=== PATIENT | female | born 2000 | race Two or more races ===

== ENCOUNTER 2020-03-16 08:02 | Emergency (ER) | payer OTHER ==
[~2020-03-16] VITALS: Ht 160 cm; Wt 66.2 kg
[2020-03-16] MEDS ORDERED: PRENATABS RX T1 EACH PO (08:07)
== END 2020-03-16 12:30 | disposition home or self-care (01) ==
LOC: ER 08:02
DX: O20.8 Other hemorrhage in early pregnancy (principal); Z3A.01 Less than 8 weeks gestation of pregnancy